=== PATIENT | male | born 1990 | race Caucasian/White ===

== ENCOUNTER 2017-02-13 13:15 | Inpatient (IN) | payer OTHER ==
[~2017-02-13] VITALS: Ht 170.2 cm; Wt 59.4 kg
[2017-02-13] MEDS ORDERED: IV NORMAL SALINE 1,000ML 1,000 ML IV ONE (13:45)
[2017-02-13 14:03] LABS: BASO % 0 % (0-3); EOS # 0.2 x10^3/uL (0.0-0.7); EOS % 3 % (0-3); HEMATOCRIT 43.1 % (39.0-53.0); HEMOGLOBIN 14.9 g/dL (13.0-17.5); LYMPH # 1.8 x10^3/uL (1.0-4.8); LYMPH % 19 % (24-48); MEAN CORPUSCULAR HEMOGLOBIN 31 pg (25-35); MEAN CORPUSCULAR HGB CONC 35 g/dL (31-37); MEAN CORPUSCULAR VOLUME 89 fL (79-100); MONO # 0.8 x10^3/uL (0.0-1.1); MONO % 8 % (0-9); NEUT # 6.6 x10^3uL (1.8-7.7); NEUT % 70 % (31-73); PLATELET COUNT 269 x10^3/uL (140-400); RED BLOOD COUNT 4.85 x10^6/uL (4.30-5.70); WHITE BLOOD COUNT 9.3 x10^3/uL (4.0-11.0)
[2017-02-13 14:15] LABS: ALBUMIN 3.8 g/dL (3.4-5.0); C REACTIVE PROTEIN 53.9 mg/L (0-3.3); CALCIUM 8.9 mg/dL (8.5-10.1); POTASSIUM 4.6 mmol/L (3.5-5.1); TOTAL BILIRUBIN 0.2 mg/dL (0.2-1.0); TOTAL PROTEIN 7.5 g/dL (6.4-8.2)
[2017-02-13] MEDS ORDERED: VANCOMYCIN 1 GM in IV NORMAL SALINE 250ML 250 ML IV ONE (14:30)
[2017-02-13] MEDS ORDERED: IV NORMAL SALINE 250ML 250 ML ONE (14:42)
[2017-02-13] MEDS ORDERED: VANCOMYCIN 1 GM VIAL. ONE (14:42)
[2017-02-13] MEDS ORDERED: ONDANSETRON PF 4 MG/2 ML VIAL. IV PRN (14:45)
[2017-02-13 15:06] LABS: SEDIMENTATION RATE 21 (0-15)
--- NOTE | 2017-02-13 16:07 | RAD ---
EXAM: Left Lower extremity venous Doppler. HISTORY: Left calf pain. COMPARISON: None. FINDINGS: Grayscale and Doppler analysis of the Left Lower extremity deep venous systems was performed with graded compression and augmentation. The left common femoral, femoral, and popliteal veins are widely patent with normal color Doppler imaging. Limited images of the left calf veins are unremarkable. IMPRESSION: No evidence of left lower extremity DVT. Electronically signed by: Hal Barr MD (02/13/2017 4:04 PM) [facility]
[2017-02-13] MEDS ORDERED: GABA600T2 PO (17:47)
--- NOTE | 2017-02-13 17:47 | PHYS DOC ---
Adult General Chief Complaint Chief Complaint: INSECT BITE HPI HPI Patient is a 26 year old male who presents with left lower leg skin problem. The patient states he noticed a lesion like a bug bite to his lower leg about a week ago. Started taking bactrim prescribed by correction, but progressively worsening pain, swelling, erythema, warmth extending distally toward foot. He denies fever, vomiting. Denies history of diabetes or immunocompromise. History of previous wound infection/cellulitis. He is incarcerated. Review of Systems Review of Systems Constitutional: Denies fever or chills HENT: Denies nasal congestion or sore throat Respiratory: Denies cough or shortness of breath Cardiovascular: Denies chest pain or edema GI: Denies abdominal pain, nausea, vomiting Musculoskeletal: Denies back pain or joint pain Integument: Reports cellulitis Neurologic: Denies headache Current Medications Current Medications Current Medications Medications (Trade) Dose Ordered Sig/Georgette Start Time Stop Time Status Last Admin Dose Admin Fentanyl Citrate (Fentanyl 2ml Vial) 50 mcg PRN Q15MIN PRN 02/13/17 13:45 02/14/17 13:44 Ondansetron HCl (Zofran) 4 mg PRN Q4HRS PRN 02/13/17 14:45 02/14/17 14:44 Sodium Chloride 250 ml @ As Directed STK-MED ONCE 02/13/17 14:42 02/13/17 14:43 DC Vancomycin HCl 1 gm STK-MED ONCE 02/13/17 14:42 02/13/17 14:43 DC Vancomycin HCl 1 gm/Sodium Chloride 250 ml @ 250 mls/hr 1X ONCE 02/13/17 14:30 02/13/17 15:29 DC 02/13/17 15:18 250 MLS/HR Allergies Allergies Allergies Coded Allergies Type Severity Reaction Last Updated Verified naproxen Allergy Unknown 02/13/17 Yes Physical Exam Physical Exam Constitutional: Well developed, well nourished, no acute distress, non-toxic appearance. HENT: Normocephalic, atraumatic, bilateral external ears normal, oropharynx moist, nose normal. Eyes: conjunctiva normal, no discharge. Neck: supple, no stridor. Cardiovascular: RRR, no murmurs, no edema. Lungs & Thorax: LCTAB, no wheezing, no respiratory distress. Abdomen: nondistended. Skin: erythema of LLE as below Back: No tenderness. Extremities: left lower extremity with <1 cm wound to medial, proximal calf. erythema/warmth/swelling extending from inferior to knee to foot, calf tenderness present, dp/pt 2+, sensation intact to foot. Neurologic: Alert and oriented X 3, no focal deficits noted. Psychologic: Affect normal, judgement normal, mood normal. Current Patient Data Lab Results Laboratory Tests Test 02/13/17 13:45 White Blood Count 9.3 x10^3/uL (4.0-11.0) Red Blood Count 4.85 x10^6/uL (4.30-5.70) Hemoglobin 14.9 g/dL (13.0-17.5) Hematocrit 43.1 % (39.0-53.0) Mean Corpuscular Volume 89 fL (79-100) Mean Corpuscular Hemoglobin 31 pg (25-35) Mean Corpuscular Hemoglobin Concent 35 g/dL (31-37) Red Cell Distribution Width 14.0 % (11.5-14.5) Platelet Count 269 x10^3/uL (140-400) Neutrophils (%) (Auto) 70 % (31-73) Lymphocytes (%) (Auto) 19 % (24-48) L Monocytes (%) (Auto) 8 % (0-9) Eosinophils (%) (Auto) 3 % (0-3) Basophils (%) (Auto) 0 % (0-3) Neutrophils # (Auto) 6.6 x10^3uL (1.8-7.7) Lymphocytes # (Auto) 1.8 x10^3/uL (1.0-4.8) Monocytes # (Auto) 0.8 x10^3/uL (0.0-1.1) Eosinophils # (Auto) 0.2 x10^3/uL (0.0-0.7) Basophils # (Auto) 0.0 x10^3/uL (0.0-0.2) Erythrocyte Sedimentation Rate 21 (0-15) H Sodium Level 139 mmol/L (136-145) Potassium Level 4.6 mmol/L (3.5-5.1) Chloride Level 102 mmol/L (98-107) Carbon Dioxide Level 31 mmol/L (21-32) Anion Gap 6 (6-14) Blood Urea Nitrogen 11 mg/dL (8-26) Creatinine 1.0 mg/dL (0.7-1.3) Estimated GFR (Cockcroft-Gault) 89.0 BUN/Creatinine Ratio 11 (6-20) Glucose Level 100 mg/dL (70-99) H Calcium Level 8.9 mg/dL (8.5-10.1) Total Bilirubin 0.2 mg/dL (0.2-1.0) Aspartate Amino Transferase (AST) 58 U/L (15-37) H Alanine Aminotransferase (ALT) 43 U/L (16-63) Alkaline Phosphatase 113 U/L (46-116) C-Reactive Protein 53.9 mg/L (0-3.3) H Total Protein 7.5 g/dL (6.4-8.2) Albumin 3.8 g/dL (3.4-5.0) Albumin/Globulin Ratio 1.0 (1.0-1.7) EKG EKG [] Radiology/Procedures Radiology/Procedures PROCEDURE: VENOUS LOWER EXTREMITY LEFT EXAM: Left Lower extremity venous Doppler. HISTORY: Left calf pain. COMPARISON: None. FINDINGS: Grayscale and Doppler analysis of the Left Lower extremity deep venous systems was performed with graded compression and augmentation. The left common femoral, femoral, and popliteal veins are widely patent with normal color Doppler imaging. Limited images of the left calf veins are unremarkable. IMPRESSION: No evidence of left lower extremity DVT. Electronically signed by: Melissa Barr MD (02/13/2017 4:04 PM) [facility] [place] DICTATED AND SIGNED BY: MELISSA BARR MD DATE: 02/13/17 1603 [] Course & Med Decision Making Course & Med Decision Making Pertinent Labs and Imaging studies reviewed. (See chart for details) The patient presents with lower extremity cellulitis. No evidence of abscess. Afebrile with stable vitals, normal WBC. However failed outpatient treatment with now extensive cellulitis involving entire lower leg, not clearly demarcated but obviously significantly more erythematous than contralateral extremity. Recommended admission for IV antibiotics; patient agreed with plan of care. Gave IV vancomycin here. Discussed with Dr. Sharma who agrees to admit to inpatient status. The patient is admitted in stable condition. [] Dragon Disclaimer Dragon Disclaimer This chart was dictated in whole or in part using Voice Recognition software in a busy, high-work load, and often noisy Emergency Department environment. It may contain unintended and wholly unrecognized errors or omissions. Departure Departure: Impression: Primary Impression: Lower extremity cellulitis Disposition: ADMITTED INPATIENT Admitting Physician: Ai Sharma Condition: STABLE Referrals: MATT LAWSON DO (PCP) RICKY SEHLL MD Feb 13, 2017 17:47
[2017-02-13 18:08] VITALS: BP 98/62
[2017-02-13 19:27] VITALS: BP 111/67
[2017-02-13] MEDS: GABAPENTIN 300 MG CAPSULE. PO SCH (20:10)
[2017-02-13] MEDS: HYDROcodone/APAP 7.5/325MG 1 TAB TABLET PO PRN (20:11)
[2017-02-13 23:10] VITALS: BP 147/68
[2017-02-14] MEDS: HYDROcodone/APAP 7.5/325MG 1 TAB TABLET PO PRN ×5 (03:42→21:19)
[2017-02-14 04:57] VITALS: BP 100/67
[2017-02-14] MEDS ORDERED: VANCOMYCIN PER PHARMACY MC PRN (07:00)
[2017-02-14] MEDS ORDERED: ACETAMINOPHEN 325 MG TABLET PO PRN (07:00)
[2017-02-14 07:05] LABS: BASO # 0.1 x10^3/uL (0.0-0.2); BASO % 2 % (0-3); EOS # 0.3 x10^3/uL (0.0-0.7); EOS % 6 % (0-3); HEMATOCRIT 44.4 % (39.0-53.0); HEMOGLOBIN 15.2 g/dL (13.0-17.5); LYMPH # 1.9 x10^3/uL (1.0-4.8); LYMPH % 33 % (24-48); MEAN CORPUSCULAR HEMOGLOBIN 31 pg (25-35); MEAN CORPUSCULAR HGB CONC 34 g/dL (31-37); MEAN CORPUSCULAR VOLUME 89 fL (79-100); MONO # 0.6 x10^3/uL (0.0-1.1); MONO % 10 % (0-9); NEUT # 2.9 x10^3uL (1.8-7.7); NEUT % 49 % (31-73); PLATELET COUNT 264 x10^3/uL (140-400); RED BLOOD COUNT 4.97 x10^6/uL (4.30-5.70); RED CELL DISTRIBUTION WIDTH 13.7 % (11.5-14.5); WHITE BLOOD COUNT 5.8 x10^3/uL (4.0-11.0)
[2017-02-14 07:13] LABS: CALCIUM 8.7 mg/dL (8.5-10.1); CREATININE 0.9 mg/dL (0.7-1.3); GFR 100.5; POTASSIUM 4.9 mmol/L (3.5-5.1)
[2017-02-14] MEDS: GABAPENTIN 300 MG CAPSULE. PO SCH ×3 (08:16→21:19)
[2017-02-14] MEDS ORDERED: VANCOMYCIN 1.5 GM in IV NORMAL SALINE 500ML 500 ML IV ONE ×2 (09:00→14:30)
[2017-02-14 10:37] VITALS: BP 104/56
[2017-02-14 15:27] VITALS: BP 112/69
[2017-02-14 19:27] VITALS: BP 116/75
[2017-02-14] MEDS ORDERED: VANCOMYCIN 1 GM in IV NORMAL SALINE 250ML 250 ML IV SCH (21:00)
[2017-02-14] MEDS: LACTOBACILLUS ACIDOPH & BULGAR 1 TABLET. PO SCH (21:19)
[2017-02-14 22:32] VITALS: BP 117/73
[2017-02-15] MEDS: VANCOMYCIN 1 GM in IV NORMAL SALINE 250ML 250 ML IV SCH ×2 (02:29→13:56)
[2017-02-15] MEDS: HYDROcodone/APAP 7.5/325MG 1 TAB TABLET PO PRN ×3 (02:34→14:04)
[2017-02-15 05:28] VITALS: BP 104/64
[2017-02-15] MEDS: LACTOBACILLUS ACIDOPH & BULGAR 1 TABLET. PO SCH (08:26)
[2017-02-15] MEDS: GABAPENTIN 300 MG CAPSULE. PO SCH ×2 (08:27→14:03)
[2017-02-15 10:37] VITALS: BP 118/66
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
[2017-02-15] MEDS ORDERED: CEPH-264 PO (13:47)
--- NOTE | 2017-02-15 21:21 | DS ---
DATE OF DISCHARGE: 02/15/2017 HOSPITAL COURSE: The patient is a 26-year-old male patient currently incarcerated at [facility], awaiting his court date, who states he was bit by a bug about 2 weeks ago, has been inflamed for almost 4 days. He has had sweats and he tired so much that he was unable to put pressure in his legs. He says he had some drainage come out of it. He was on Septra and was admitted for intravenous antibiotic treatment. He was started on IV vancomycin. PHYSICAL EXAMINATION: GENERAL: When I saw him this afternoon, he was sitting slightly propped up in bed, in no apparent distress. No pallor, jaundice, cyanosis or thyromegaly. No jugular venous distension. No limb edema. VITAL SIGNS: His heart rate was 77, blood pressure was 118/66, temperature was 97.7, respiratory rate was 20, and oxygen saturation was 97%. HEAD, EYES, EARS, NOSE AND THROAT: Showed normocephalic, atraumatic. NECK: Supple. HEART: Showed normal first and second heart sounds with no gallop, rub or murmur. CHEST: Clear to auscultation. No crepitation or rhonchi. ABDOMEN: Distended, soft, nontender. No guarding or rigidity. No organomegaly. Hernial orifices intact. Bowel sounds normal. NEUROLOGIC: He was awake, alert, responding appropriately. Cranial nerves intact. EXTREMITIES: He moves extremities without difficulty. He has an area of scabbing and small area of erythema around it in the medial aspect of the left leg. No erythema anywhere in the foot or rest of the leg. LABORATORY WORK: Yesterday showed a white cell count 5800, hemoglobin 15, hematocrit 44, MCV 89 and platelet count 264,000. Chemistry showed a serum sodium 140, potassium 4.9, chloride 103, bicarbonate 31, anion gap of 6, BUN 13, creatinine 0.9, estimated GFR was 100 mL per minute. His glucose was 90, calcium was 8.7. His sedimentation rate on admission was 21. C-reactive protein was 53.9 mg/dL. His nasal screen for MRSA by PCR was negative. DISCHARGE MEDICATIONS: The patient will be discharged home to continue treatment in the form of gabapentin 600 mg 3 times a day as well as Keflex 500 mg 3 times a day for 7 days. FINAL DISCHARGE DIAGNOSES: Left lower extremity cellulitis, resolving. Chronic low back pain. BRENDAN SUAZO MD DR: ELEN/vicky JOB#: [id number] / [id number]
== END 2017-02-15 15:15 | disposition home or self-care (01) | DRG 603 ==
LOC: ER 13:15 → EEVIPCON 13:15 → 1 SOUTH 17:31
PROVIDERS: ADMIT Family Medicine; ATTEND Family Medicine
DX: L03.116 Cellulitis of left lower limb (principal); F17.210 Nicotine dependence, cigarettes, uncomplicated; G89.29 Other chronic pain; M54.5 Low back pain; W57.XXXA Bitten or stung by nonvenomous insect and other nonvenomous arthropods, initial encounter; Z86.73 Personal history of transient ischemic attack (TIA), and cerebral infarction without residual deficits
CPT/HCPCS: 36415; 80048; 80053; 85025; 85651; 86140; 87641; 93971; 96361; 96365; 96366; J3010; J3370; J7040; J7050; 99285-25; J7030